=== PATIENT | male | born 1970 | race Caucasian/White ===

== ENCOUNTER 2020-07-03 19:22 | Emergency (ER) | payer OTHER ==
--- NOTE | 2020-07-04 05:14 | NUR ---
[facility] DATABASE MARKETING MANAGER NOTIFIED RE: NEGATIVE COVID RESULT. PT WILL BE MADE [facility] CORONERS CASE.
== END 2020-07-03 19:42 ==
LOC: ER 19:22
DX: I46.9 Cardiac arrest, cause unspecified (principal); Z20.828 Contact with and (suspected) exposure to other viral communicable diseases